=== PATIENT | male | born 1950 | race African-American/Black ===

== ENCOUNTER 2018-04-18 15:45 | Emergency (ER) | payer MEDICAID ==
[~2018-04-18] VITALS: Ht 172.7 cm; Wt 89.0 kg
[2018-04-18 16:04] VITALS: BP 110/70
== END 2018-04-18 16:57 | disposition home or self-care (01) ==
LOC: ER 16:48
DX: S81.811D Laceration without foreign body, right lower leg, subsequent encounter (principal); X58.XXXD Exposure to other specified factors, subsequent encounter; I10 Essential (primary) hypertension; F17.200 Nicotine dependence, unspecified, uncomplicated
CPT/HCPCS: 99281

== ENCOUNTER 2018-04-21 16:39 | Emergency (ER) | payer MEDICAID ==
[~2018-04-21] VITALS: Ht 185.4 cm; Wt 92.0 kg
[2018-04-21] MEDS ORDERED: SILVER NITRATE APPLICATOR STICK TOP ONE (18:15)
[2018-04-21] MEDS ORDERED: LIDOCAINE HCL 1% 20ML VIAL (Pyxis) INJ INFIL ONE (18:15)
[2018-04-21] MEDS ORDERED: SODIUM CHLORIDE 0.9% 1,000 ML IV ONE (18:15)
[2018-04-21 19:17] LABS: CHLORIDE 102 mEq/L (98-107)
[2018-04-21 19:24] LABS: BASOPHILS % 0.5 % (0.0-2.0); EOSINOPHILS % 0.7 % (0.0-5.0); HEMATOCRIT. 30.5 % (42.0-52.0); HEMOGLOBIN. 9.6 g/dL (14.0-18.0); LYMPHOCYTES % 18.9 % (20.0-50.0); MEAN CORPUSCULAR HEMOGLOBIN 21.8 pg (28.0-32.0); MEAN CORPUSCULAR VOLUME 68.7 fL (80.0-94.0); MEAN PLATELET VOLUME 9.6 fl (7.4-10.4); MONOCYTES % 10.4 % (2.0-8.0); NEUTROPHILS % 69.5 % (40.0-76.0); PLATELET 138 x1000/uL (130-400); RED BLOOD CELL COUNT 4.43 mill/uL (4.7-6.1); RED CELL DISTRIBUTION WIDTH 17.3 % (11.6-14.6)
[2018-04-21 19:41] LABS: PLATELET ESTIMATE NORMAL
[2018-04-21 21:49] VITALS: BP 116/75
== END 2018-04-21 21:56 | disposition home or self-care (01) ==
LOC: ER 16:41
DX: I83.891 Varicose veins of right lower extremity with other complications (principal); I10 Essential (primary) hypertension
CPT/HCPCS: 36415; 80048; 85025; 99284; J3490; J7030; Z7610

== ENCOUNTER 2018-09-06 15:51 | Emergency (ER) | payer MEDICAID ==
[~2018-09-06] VITALS: Ht 180.3 cm; Wt 89.0 kg
[2018-09-06 16:36] VITALS: BP 135/81
[2018-09-06] MEDS ORDERED: ACETAMINOPHEN 325MG TABLET PO ONE (16:45)
== END 2018-09-06 18:00 | disposition left against medical advice (07) ==
LOC: ER 15:51
DX: R51 Headache (principal); R42 Dizziness and giddiness; I10 Essential (primary) hypertension; Z91.81 History of falling
CPT/HCPCS: 99281

== ENCOUNTER 2021-04-02 14:37 | Emergency (ER) | payer MEDICARE, OTHER ==
[~2021-04-02] VITALS: Ht 193 cm; Wt 109.0 kg
[2021-04-02 18:10] VITALS: BP 132/60
== END 2021-04-02 18:10 | disposition home or self-care (01) ==
LOC: ER 14:37
DX: I83.891 Varicose veins of right lower extremity with other complications (principal); I10 Essential (primary) hypertension
CPT/HCPCS: 99283; Z7610

== ENCOUNTER 2022-02-26 03:29 | Emergency (ER) | payer MEDICARE, OTHER ==
[~2022-02-26] VITALS: Ht 180.3 cm; Wt 93.0 kg
[2022-02-26] MEDS ORDERED: BACITRACIN ZINC OINT UDPKT TOP ONE (05:00)
[2022-02-26 05:38] VITALS: BP 123/70
== END 2022-02-26 05:40 | disposition home or self-care (01) ==
LOC: ER 03:29
DX: I83.892 Varicose veins of left lower extremity with other complications (principal)
CPT/HCPCS: 99282